=== PATIENT | female | born 1940 | race Caucasian/White ===

== ENCOUNTER 2021-09-03 23:23 | Emergency (ER) | payer OTHER, SELFPAY ==
[2021-09-03 23:38] VITALS: PULSE 74; O2SAT 99
[2021-09-03 23:40] VITALS: BP 202/93; PULSE 79; RESP 16; TEMP 36.7; O2SAT 97; BMI 30.7
[2021-09-03 23:59] LABS: Add Manual Diff / Slide Review NO; Basophils Absolute Auto 100 /uL (0-100); Basophils Percent Auto 1.1 % (0-2); Eosinophils Absolute Auto 600 /uL (0-450); Eosinophils Percent Auto 5.2 % (2-4); Hematocrit 34.3 % (36-46); Hemoglobin 11.9 g/dL (12.0-16.0); Lymphocytes Absolute Auto 3000 /uL (1100-4500); Lymphocytes Percent Auto 28.3 % (25-40); Mean Corpuscular HGB Conc 34.7 % (30-36); Mean Corpuscular Hemoglobin 32.2 PG (26-34); Monocytes Absolute Auto 900 /uL (0-900); Monocytes Percent Auto 8.2 % (3-14); Neutrophils Absolute Auto 6000 /uL (1500-7000); Neutrophils Percent Auto 57.2 % (50-75); Platelet Count 211 X10^3/uL (150-400); Red Blood Cell Count 3.69 X10^6/uL (4.0-5.2); Red Cell Distribution Width 12.7 % (11.6-14.8); White Blood Cell Count 10.6 X10^3/uL (4.5-11.0)
[2021-09-04] VITALS (8 sets, daily range): BP systolic 166–197; BP diastolic 75–86; PULSE 68–78; O2SAT 97–100
[2021-09-04 00:03] LABS: Alanine Aminotransferase 21 IU/L (<35); Albumin 4.1 g/dL (3.5-5.0); Albumin Globulin Ratio 1.5 (1.0-2.8); Alkaline Phosphatase 77 U/L (38-126); Aspartate Aminotransferase 27 IU/L (14-36); BUN Creatinine Ratio 25.7 (6-22); Bilirubin Total 0.5 mg/dL (0.2-1.3); Blood Urea Nitrogen 18 mg/dL (7-17); Calcium 9.2 mg/dL (8.4-10.2); Carbon Dioxide 28 mmol/L (22-32); Chloride 100 mmol/L (98-107); Estimated Glomerular Filt Rate > 60 mL/min (>60); Globulin 2.8 g/dL (1.7-4.1); Glucose 110 mg/dL (80-110); HEMOLYSIS < 15 (0-50); Magnesium 1.8 mg/dL (1.6-2.3); Potassium 3.5 mmol/L (3.4-5.1); Sodium 136 mmol/L (137-145); Total Protein 6.9 g/dL (6.3-8.2)
[2021-09-04 00:13] LABS: Troponin I < 0.012 ng/mL (0.01-0.034)
[2021-09-04 00:20] LABS: COVID19 -Nasal RAPID Negative (Negative)
--- NOTE | 2021-09-04 01:56 | ED_ITS ---
HPI - Neuro Symptoms/Deficit General Chief Complaint: Neuro Symptoms/Deficit Stated Complaint: Not feeling well Time Seen by Provider: 09/03/21 23:49 Source: patient and EMS Mode of arrival: EMS History of Present Illness HPI Narrative: 80-year-old woman with history of hypertension, hyperlipidemia, vertigo visiting from [place] on a cruise ship and after boarding the ship this morning and applying her scopolamine patch at about 930 her friends noticed that she was having difficulty with balance speech, she seemed on engaged, she was having difficulty reading the lunch menu her thoughts seemed far less to focus and they noticed that symptoms continued to worsen throughout the day. They brought her into the emergency department for further evaluation this evening. Current medications include a statin, metoprolol and hydrochlorothiazide. She denies fever cough chills or headache. No lower extremity edema, chest pain or palp itations On Anticoagulants: No Related Data Allergies Allergy/AdvReac Type Severity Reaction Status Date / Time No Known Drug Allergies Allergy Verified 09/03/21 23:39 Review of Systems Review of Systems Narrative: Remainder of complete review of systems is otherwise unremarkable except for that included in the HPI. Hematologic/Lymphatic On Anticoagulants: No Patient History Medical History (Updated 09/04/21 @ 03:22 by Sharee Taveras MD) Hyperlipidemia Hypertension Vertigo Social History Smoking Status: Never smoker Smoking Status: Never smoker Substance Use Type: does not use Exam Initial Vital Signs Initial Vital Signs: Vital Signs Temperature 98.1 F 09/03/21 23:40 Pulse Rate 79 09/03/21 23:40 Respiratory Rate 16 09/03/21 23:40 Blood Pressure 202/93 H 09/03/21 23:40 Pulse Oximetry 97 09/03/21 23:40 Oxygen Delivery Method 09/03/21 23:40 General: Healthy appearing, in no acute distress. Able to give a complete and coherent history. Well-nourished well-developed HEENT: Dry mucous membranes, normal sclera with widely dilated but reactive pupils, Neck: No JVD, supple Respiratory: Lungs are clear to auscultation, no wheezing no rales no rhonchi. Full and symmetrical air movement Cardiac: Regular rate and rhythm no murmurs no bruits Abdomen: Soft, nontender, good bowel tones, no flank pain Skin: Warm and dry, no rashes Neurologic: Grossly neurologically intact with no obvious asymmetries or abnormalities Extremities: No trauma, well perfused Psych: Cooperative, appropriate insight and affect Course Orders Ordered: ED Orders 09/03/21 23:35 Complete Blood Count AUTO DIFF Stat Comprehensive Metabolic Panel Stat Magnesium Stat Troponin I Stat 09/03/21 23:54 COVID19 -Nasal RAPID/Pre-Proc Stat Vital Signs Vital signs: Vital Signs - 8 hr 09/03/21 23:40 Temperature 98.1 F Pulse Rate 79 Respiratory Rate 16 Blood Pressure 202/93 H Pulse Oximetry 97 Oxygen Delivery Method Room Air MDM - Neuro Symptoms/Deficit Lab Data Result diagrams: 09/03/21 23:35 09/03/21 23:35 Labs: Lab Results 09/03/21 09/03/21 09/03/21 Range/Units 23:35 23:35 23:35 WBC 10.6 (4.5-11.0) X10^3/uL RBC 3.69 L (4.0-5.2) X10^6/uL Hgb 11.9 L (12.0-16.0) g/dL Hct 34.3 L (36-46) % MCV 93.0 (80-100) fL MCH 32.2 (26-34) PG MCHC 34.7 (30-36) % RDW 12.7 (11.6-14.8) % Plt Count 211 (150-400) X10^3/uL Neut % (Auto) 57.2 (50-75) % Lymph % (Auto) 28.3 (25-40) % [place] % (Auto) 8.2 (3-14) % Eos % (Auto) 5.2 H (2-4) % Baso % (Auto) 1.1 (0-2) % Neut # (Auto) 6000 (1740-9865) /uL Lymph # (Auto) 3000 (4816-4051) /uL [place] # (Auto) 900 (0-900) /uL Eos # (Auto) 600 H (0-450) /uL Baso # (Auto) 100 (0-100) /uL Sodium 136 L (137-145) mmol/L Potassium 3.5 (3.4-5.1) mmol/L Chloride 100 (98-107) mmol/L Carbon Dioxide 28 (22-32) mmol/L BUN 18 H (7-17) mg/dL Creatinine 0.70 (0.52-1.04) mg/dL Estimated GFR > 60 (>60) mL/min BUN/Creatinine Ratio 25.7 H (6-22) Glucose 110 (80-110) mg/dL Calcium 9.2 (8.4-10.2) mg/dL Magnesium 1.8 (1.6-2.3) mg/dL Total Bilirubin 0.5 (0.2-1.3) mg/dL AST 27 (14-36) IU/L ALT 21 (<35) IU/L Alkaline Phosphatase 77 (38-126) U/L Troponin I < 0.012 (0.01-0.034) ng/mL Total Protein 6.9 (6.3-8.2) g/dL Albumin 4.1 (3.5-5.0) g/dL Globulin 2.8 (1.7-4.1) g/dL Albumin/Globulin Ratio 1.5 (1.0-2.8) SARS-CoV-2 (PCR) (Negative) 09/04/21 Range/Units 23:56 WBC (4.5-11.0) X10^3/uL RBC (4.0-5.2) X10^6/uL Hgb (12.0-16.0) g/dL Hct (36-46) % MCV (80-100) fL MCH (26-34) PG MCHC (30-36) % RDW (11.6-14.8) % Plt Count (150-400) X10^3/uL Neut % (Auto) (50-75) % Lymph % (Auto) (25-40) % [place] % (Auto) (3-14) % Eos % (Auto) (2-4) % Baso % (Auto) (0-2) % Neut # (Auto) (2421-7595) /uL Lymph # (Auto) (5081-7359) /uL [place] # (Auto) (0-900) /uL Eos # (Auto) (0-450) /uL Baso # (Auto) (0-100) /uL Sodium (137-145) mmol/L Potassium (3.4-5.1) mmol/L Chloride (98-107) mmol/L Carbon Dioxide (22-32) mmol/L BUN (7-17) mg/dL Creatinine (0.52-1.04) mg/dL Estimated GFR (>60) mL/min BUN/Creatinine Ratio (6-22) Glucose (80-110) mg/dL Calcium (8.4-10.2) mg/dL Magnesium (1.6-2.3) mg/dL Total Bilirubin (0.2-1.3) mg/dL AST (14-36) IU/L ALT (<35) IU/L Alkaline Phosphatase (38-126) U/L Troponin I (0.01-0.034) ng/mL Total Protein (6.3-8.2) g/dL Albumin (3.5-5.0) g/dL Globulin (1.7-4.1) g/dL Albumin/Globulin Ratio (1.0-2.8) SARS-CoV-2 (PCR) Negative (Negative) MDM Narrative Medical decision making narrative: 80-year-old woman with significant anticholinergic side effects related to scopolamine placed earlier today to help with possible sea sickness while she is on her short cruise. The patches been removing her symptoms are significantly improving. There is no evidence of acute infection, electrolyte abnormality, stroke, acute coronary syndrome, urinary tract infection or alternate explanation that would require further workup or hospitalization. During her observation in the emergency department the symptoms continued to improve. She is safe for home discharge Discharge Plan Departure Patient Disposition: Home Clinical Impression: Adverse drug effect Activity Restrictions/Additional Instructions: Thank you for coming in today Your blood work was very reassuring. You do not have any evidence of stroke, heart attack or infection. All of your symptoms are absolutely consistent with adverse reactions from your scopolamine patch to help with seasickness. As the patch has been off your symptoms are improving and will continue to do so. It is okay to use the Bonna but you need to not use the scopolamine patches in the future. I hope the rest of your vacation is fantastic
== END 2021-09-04 03:09 | disposition home or self-care (01) ==
PROVIDERS: Emergency Provider Emergency Medicine
DX: R42 Dizziness and giddiness (principal); T50.905A Adverse effect of unspecified drugs, medicaments and biological substances, initial encounter; Z20.822 Contact with and (suspected) exposure to COVID-19
CPT/HCPCS: 36415; 80053; 83735; 84484; 85025; 87635; 99283; C9803